=== PATIENT | female | born 1965 | race Caucasian/White ===

== ENCOUNTER 2022-04-09 16:12 | Emergency (ER) | payer BC ==
[2022-04-09] MEDS ORDERED: Sodium Chloride 0.9% 10 ML Syringe FLUSH PRN (16:30)
[2022-04-09] MEDS ORDERED: Sodium Chloride 0.9% 2.5 ML Syringe FLUSH PRN (16:30)
[2022-04-09] MEDS ORDERED: Ketorolac 30 MG/ML SDV IVPUSH ONE (16:30)
[2022-04-09] MEDS ORDERED: Ondansetron 4 MG/2 ML SDV IVPUSH ONE (16:30)
[2022-04-09] MEDS ORDERED: Sodium Chloride 0.9% 1,000 ML IV ONE ×2 (16:30→17:48)
[2022-04-09 17:37] LABS: CARBON DIOXIDE,CO2 21.4 mmol/L (21.0-32.0); POTASSIUM,K 3.6 mmol/L (3.5-5.1)
[2022-04-09] MEDS ORDERED: fentaNYL 50 MCG/ML SDV IVPUSH ONE ×2 (17:52→19:24)
[2022-04-09 18:01] LABS: HEMOGLOBIN A1C 9.3 %
[2022-04-09] MEDS ORDERED: Iopamidol 755 MG/ML 500 ML Multipack Bottle IVPUSH ONE (18:05)
[2022-04-09] MEDS ORDERED: 50% Dextrose in Water 50 ML Syringe IVPUSH PRN ×2 (18:22→20:25)
[2022-04-09] MEDS ORDERED: Insulin Regular, Human 100 Units/ML 10 ML Vial IVPUSH ONE ×2 (18:22→20:25)
[2022-04-09] MEDS ORDERED: Glucagon,Human Recombinant 1 MG Vial IM PRN ×2 (18:22→20:25)
[2022-04-09] MEDS ORDERED: metFORMIN 500 MG Tab PO ONE (20:55)
[2022-04-09] MEDS ORDERED: Amoxicillin/Clavulanate K 875-125 MG Tab PO ONE (21:24)
[2022-04-09] MEDS ORDERED: Acetaminophen/HYDROcodone 325-10 MG Tab PO ONE (21:37)
== END 2022-04-09 22:10 | disposition home or self-care (01) ==
LOC: MW.ED 16:12
DX: K57.32 Diverticulitis of large intestine without perforation or abscess without bleeding (principal); E11.9 Type 2 diabetes mellitus without complications; I10 Essential (primary) hypertension; Z88.5 Allergy status to narcotic agent; Z79.899 Other long term (current) drug therapy; Z79.84 Long term (current) use of oral hypoglycemic drugs
CPT/HCPCS: 36415; 74177; 80053; 81001; 82009; 83036; 83690; 85025; 96361; 96374; 96375; 96376; 99284; A9270; J1885; J2405; J3010; J3490; J7030; Q9967; J1815-GY